=== PATIENT | male | born 1945 | race Caucasian/White ===

== ENCOUNTER 2020-12-26 11:00 | Outpatient (CLI) | payer BC | END 2020-12-26 11:01 | disposition home or self-care (01) | LOC: BICMAMMO 11:00 | PROVIDERS: ATTEND Internal Medicine Rheumatology | DX: Z13.820 Encounter for screening for osteoporosis (principal); M85.852 Other specified disorders of bone density and structure, left thigh; Z79.899 Other long term (current) drug therapy | CPT/HCPCS: 77080 ==

== ENCOUNTER 2021-08-18 16:25 | Inpatient (IN) | payer MEDICARE, BC ==
[2021-08-18 20:47] VITALS: BMI 32.5
[2021-08-18] MEDS ORDERED: Ondansetron PF 4 MG/2 ML Vial IVP PRN (21:30)
[2021-08-18] MEDS ORDERED: Loperamide HCl 2 MG CAP PO PRN (21:32)
[2021-08-18 21:50] LABS: Troponin I 0.024 ng/mL (< 0.028)
[2021-08-19] MEDS ORDERED: Apixaban 5 MG TAB PO SCH ×2 (00:15→21:00)
[2021-08-19] MEDS ORDERED: hydrALAZINE 20 MG/ML VIAL SLOW IVP PRN (04:35)
[2021-08-19 05:47] LABS: ALT (SGPT) 28 U/L (8-55); AST (SGOT) 32 U/L (5-34); Albumin 3.4 g/dL (3.4-4.8); Alkaline Phosphatase 49 U/L (40-110); Anion Gap 14 mmol/L (10-20); BUN (Urea Nitrogen) 11 mg/dL (8.4-25.7); Bilirubin, Total 0.6 mg/dL (0.2-1.2); Calc. Creatinine Clearance 107 mL/min (70-130); Calcium 8.7 mg/dL (7.8-10.44); Carbon Dioxide 23 mmol/L (23-31); Chloride 105 mmol/L (98-107); Globulin 3.1 g/dL (2.4-3.5); Glucose 141 mg/dL (83-110); Potassium 4.2 mmol/L (3.5-5.1); Protein, Total 6.5 g/dL (5.8-8.1); Sodium 138 mmol/L (136-145)
[2021-08-19 05:58] LABS: Band 4 % (5-11); Hemoglobin 11.9 g/dL (14.0-18.0); Hypochromia SLIGHT = 6-15 cells (100X) (0-5/hpf); Lymphocytes 38 % (21-51); MDiff Complete? YES; Mean Corpuscular HGB CONC 34.5 g/dL (32.0-36.0); Mean Corpuscular Hemoglobin 32.3 pg (27.0-31.0); Mean Corpuscular Volume 93.8 fL (78.0-98.0); Monocytes 12 % (0-10); Neutrophil 46 % (42-75); Platelet Count 92 thou/uL (130-400); Platelet Morphology Comment Appears Decreased; RBC Distribution Width 11.5 % (11.5-14.5); Red Blood Cell (RBC) Count 3.69 mill/uL (4.70-6.10); Reflex for Review?? YES; White Blood Cell (WBC) Count 1.4 thou/uL (4.8-10.8)
[2021-08-19] MEDS ORDERED: Non-Formulary Item 1 EACH (Omeprazole [Omeprazole] 40 MG Capsule.Dr) PO SCH (09:00)
[2021-08-19] MEDS ORDERED: Non-Formulary Item 1 EACH (Leflunomide [Arava] 20 MG Tab) PO SCH (09:00)
[2021-08-19] MEDS: Ascorbic Acid 500 mg Chewable Tablet PO SCH (09:29)
[2021-08-19] MEDS: Aspirin 81 mg Enteric Coated Tablet PO SCH (09:30)
[2021-08-19] MEDS: Apixaban 5 MG TAB PO SCH ×2 (09:32→21:15)
[2021-08-19] MEDS: DULoxetine 30 MG CAP PO SCH (09:32)
[2021-08-19] MEDS: Benzonatate 100 MG CAP PO SCH ×3 (09:32→21:15)
[2021-08-19] MEDS: Leflunomide 10 mg Tablet PO SCH (09:33)
[2021-08-19] MEDS: Propranolol 10 MG TAB PO SCH ×3 (09:35→21:21)
[2021-08-19] MEDS: Zinc Sulfate 220 MG CAP PO SCH (09:35)
[2021-08-19] MEDS: Pregabalin 75 MG CAP PO SCH ×2 (09:35→21:21)
[2021-08-19 10:02] LABS: Troponin I 0.017 ng/mL (< 0.028)
[2021-08-19] MEDS: Dexamethasone 4 mg/ml Vial SLOW IVP SCH (16:41)
[2021-08-19 17:07] LABS: SARS-CoV-2 PCR by NAA DETECTED (NotDetected)
[2021-08-20] MEDS: Acetaminophen 325 MG TAB PO PRN ×3 (00:55→20:19)
[2021-08-20] MEDS ORDERED: guaiFENesin 200 MG TAB PO PRN (01:55)
[2021-08-20] MEDS ORDERED: traMADol HCl 50 MG TAB PO SCH ×3 (04:15→23:59)
[2021-08-20] MEDS: Dexamethasone 4 mg/ml Vial SLOW IVP SCH ×2 (04:26→16:57)
[2021-08-20 07:46] LABS: Hemoglobin 12.9 g/dL (14.0-18.0); Mean Corpuscular HGB CONC 35.2 g/dL (32.0-36.0); Mean Corpuscular Hemoglobin 32.6 pg (27.0-31.0); Mean Corpuscular Volume 92.5 fL (78.0-98.0); Mean Platelet Volume 9.1 fL (7.4-10.4); Platelet Count 106 thou/uL (130-400); RBC Distribution Width 11.4 % (11.5-14.5); Red Blood Cell (RBC) Count 3.95 mill/uL (4.70-6.10); White Blood Cell (WBC) Count 2.5 thou/uL (4.8-10.8)
[2021-08-20 07:47] LABS: ALT (SGPT) 29 U/L (8-55); AST (SGOT) 32 U/L (5-34); Albumin 3.3 g/dL (3.4-4.8); Alkaline Phosphatase 51 U/L (40-110); Anion Gap 13 mmol/L (10-20); BUN (Urea Nitrogen) 16 mg/dL (8.4-25.7); Bilirubin, Total 0.7 mg/dL (0.2-1.2); Calc. Creatinine Clearance 120 mL/min (70-130); Calcium 8.5 mg/dL (7.8-10.44); Carbon Dioxide 22 mmol/L (23-31); Chloride 107 mmol/L (98-107); Glucose 122 mg/dL (83-110); Magnesium 1.9 mg/dL (1.6-2.6); Potassium 3.8 mmol/L (3.5-5.1); Protein, Total 6.3 g/dL (5.8-8.1); Sodium 138 mmol/L (136-145)
[2021-08-20] MEDS: Aspirin 81 mg Enteric Coated Tablet PO SCH (09:29)
[2021-08-20] MEDS: Benzonatate 100 MG CAP PO SCH ×3 (09:29→20:17)
[2021-08-20] MEDS: Apixaban 5 MG TAB PO SCH ×2 (09:29→20:17)
[2021-08-20] MEDS: Ascorbic Acid 500 mg Chewable Tablet PO SCH (09:29)
[2021-08-20] MEDS: Pregabalin 75 MG CAP PO SCH ×2 (09:29→20:17)
[2021-08-20] MEDS: DULoxetine 30 MG CAP PO SCH (09:31)
[2021-08-20] MEDS: Propranolol 10 MG TAB PO SCH ×3 (09:31→20:19)
[2021-08-20] MEDS: Zinc Sulfate 220 MG CAP PO SCH (09:32)
[2021-08-20 10:01] LABS: Band 7 % (5-11); Eosinophils 1 % (0-10); Lymphocytes 30 % (21-51); MDiff Complete? YES; Monocytes 10 % (0-10); Neutrophil 50 % (42-75); Platelet Morphology Comment Appears Decreased; Polychromasia SLIGHT = 2-3 cells (100X) (0-2/hpf); Reactive Lymphocytes 2 % (0-10)
[2021-08-20] MEDS: Leflunomide 10 mg Tablet PO SCH (10:12)
[2021-08-21] MEDS: Dexamethasone 4 mg/ml Vial SLOW IVP SCH (04:56)
[2021-08-21 07:10] LABS: Hemoglobin 12.7 g/dL (14.0-18.0); Mean Corpuscular HGB CONC 32.5 g/dL (32.0-36.0); Mean Corpuscular Volume 95.2 fL (78.0-98.0); Mean Platelet Volume 8.7 fL (7.4-10.4); Platelet Count 132 thou/uL (130-400); RBC Distribution Width 11.6 % (11.5-14.5); Red Blood Cell (RBC) Count 4.09 mill/uL (4.70-6.10); White Blood Cell (WBC) Count 2.8 thou/uL (4.8-10.8)
[2021-08-21 08:17] LABS: Band 8 % (5-11); Lymphocytes 30 % (21-51); MDiff Complete? YES; Monocytes 20 % (0-10); Neutrophil 41 % (42-75); Platelet Morphology Comment Appears Adequate; RBC Morphology Normal; Reactive Lymphocytes 1 % (0-10)
[2021-08-21 08:35] VITALS: BP 158/74; TEMP 97.6
[2021-08-21] MEDS: Zinc Sulfate 220 MG CAP PO SCH (09:15)
[2021-08-21] MEDS: Leflunomide 10 mg Tablet PO SCH (09:15)
[2021-08-21] MEDS: Pregabalin 75 MG CAP PO SCH (09:16)
[2021-08-21] MEDS: DULoxetine 30 MG CAP PO SCH (09:16)
[2021-08-21] MEDS: Apixaban 5 MG TAB PO SCH (09:17)
[2021-08-21] MEDS: Aspirin 81 mg Enteric Coated Tablet PO SCH (09:17)
[2021-08-21] MEDS: Ascorbic Acid 500 mg Chewable Tablet PO SCH (09:17)
[2021-08-21] MEDS: Propranolol 10 MG TAB PO SCH (09:17)
== END 2021-08-21 11:55 | disposition home or self-care (01) | DRG 177 ==
LOC: 2SE 16:25 → OBSVTOIN 08-19 15:57
PROVIDERS: ADMIT Internal Medicine; ATTEND Internal Medicine
PROC: 8E0ZXY6 Isolation (ICD-10-PCS; principal; 2021-08-19)
PROC: 3E0333Z Introduction of Anti-inflammatory into Peripheral Vein, Percutaneous Approach (ICD-10-PCS; 2021-08-19)
DX: U07.1 COVID-19 (principal); J12.82 Pneumonia due to coronavirus disease 2019; D84.9 Immunodeficiency, unspecified; M06.9 Rheumatoid arthritis, unspecified; R77.8 Other specified abnormalities of plasma proteins; D69.6 Thrombocytopenia, unspecified; K22.70 Barrett's esophagus without dysplasia; K21.9 Gastro-esophageal reflux disease without esophagitis; I48.91 Unspecified atrial fibrillation; Z79.01 Long term (current) use of anticoagulants; Z88.0 Allergy status to penicillin; Z79.82 Long term (current) use of aspirin; Z79.899 Other long term (current) drug therapy
CPT/HCPCS: 36415; 80053; 82728; 83735; 84484; 85025; 85060; 85379; 86140; J1100; U0003; U0005

== ENCOUNTER 2023-05-20 08:26 | Outpatient (CLI) | payer BC | END 2023-05-20 08:27 | disposition home or self-care (01) | LOC: NM 08:26 | PROVIDERS: ATTEND Psychiatry & Neurology Neurology | DX: R25.1 Tremor, unspecified (principal) | CPT/HCPCS: 78803; A9584 ==